=== PATIENT | female | born 1985 | race Caucasian/White ===

== ENCOUNTER → 2018-11-19 09:46 | Outpatient (CLI) | payer OTHER, SELFPAY ==
--- NOTE | 2018-11-19 09:49 | DI.US.S_ITS ---
LIMITED ULTRASOUND OF LEFT BREAST AND AXILLA: 11/19/2018 CLINICAL: Palpable left breast lump x 2 months. Additional tender spot x 1 day. Patient is reportedly nursing. Comparison is made to exam dated: 11/19/2018 mammogram - [facility]. Real-time and Doppler ultrasound of the left breast 1-2 o'clock, and axilla regions were performed. Johnson scale images of the real-time examination were reviewed. There is a 1.3 x 1.6 x 1.1 cm irregular indistinct mass in the left breast at 1:00 position 18 cm from the nipple at the site of the patient's reported palpable concern. This mass demonstrates heterogeneous echogenicity, as well as internal and peripheral vascularity on Doppler ultrasound. There is a 0.6 cm oval circumscribed hypoechoic mass adjacent this mass and may represent an adjacent lymph node. Targeted ultrasound of the left axilla demonstrates a 1.8 x 0.8 cm lymph node that demonstrates a preserved internal fatty hilum but demonstrates an area of asymmetric cortical thickening up to 5 mm. There is prominent hilar vascularity on Doppler ultrasound. Targeted ultrasound of the left breast at 2:00 position 15 cm from the nipple at the site of the patient's reported focal pain/tenderness demonstrates no underlying mass or abnormality. Dense fibroglandular tissue is identified. IMPRESSION: SUSPICIOUS OF MALIGNANCY 1. 1.6 cm irregular indistinct mass in the left breast at 1:00 position 18 cm from the nipple at the site of the patient's palpable concern. This mass is of intermediate suspicion for malignancy and an ultrasound-guided biopsy is recommended. 2. Abnormal cortical thickening of a left axillary lymph node. An ultrasound-guided biopsy is recommended. 3. No ultrasound evidence of a mass or abnormality in the left breast at the site of the patient's reported focal pain/tenderness to explain the patient's reported pain/tenderness symptoms. Recommend clinical followup for further evaluation and management. These results and recommendations were discussed with the patient at the time of the exam by the [facility] Radiologist Dr. Rudolph Buenrostro in person. This exam was interpreted at Station ID: [id number]. Electronically Signed By: Pravin Davidson M.D. ecl/:11/19/2018 12:16:11 letter sent: Biopsy Required Ultrasound BI-RADS: 4b Suspicious abnormality - intermediate suspicion of malignancy
--- NOTE | 2018-11-19 09:49 | DI.MG.S_ITS ---
BILATERAL DIGITAL DIAGNOSTIC MAMMOGRAM 3D/2D: 11/19/2018 CLINICAL: Baseline exam. Family history of breast cancer. Left breast lump and pain. No prior exams were available for comparison. The tissue of both breasts is extremely dense, which lowers the sensitivity of mammography. There is a triangular marker overlying the skin of the upper outer left breast at middle to posterior depth at the site of the patient's reported palpable abnormality. There is no underlying mammographic abnormality. There is a square marker overlying the skin of the upper outer left breast breast at middle to posterior depth at the site of the patient's reported focal pain/tenderness. There is no underlying mammographic abnormality. IMPRESSION: INCOMPLETE: NEEDS ADDITIONAL IMAGING EVALUATION No mammographic abnormalities to correlate with the site of the patient's reported focal palpable abnormality or the site of the patient's reported focal breast pain/tenderness in the upper outer left breast. Targeted diagnostic ultrasound recommended for further evaluation, which will be performed immediately following this exam. This exam was interpreted at Station ID: [id number]. NOTE: For mammograms, a report in lay terms will be sent to the patient. Approximately 15% of breast malignancies will not be visualized mammographically. In the management of a palpable breast mass, a negative mammogram must not discourage biopsy of a clinically suspicious lesion. Electronically Signed By: Pravin Davidson M.D. ecl/:11/19/2018 12:01:51 copy to: Faith White letter sent: Additional Imaging Needed ACR BI-RADS Category 0: Incomplete [id number]
== END ==
PROVIDERS: PCP Family Medicine; Visit Provider Registered Nurse
DX: R92.8 Other abnormal and inconclusive findings on diagnostic imaging of breast (principal); N63.21 Unspecified lump in the left breast, upper outer quadrant; N64.4 Mastodynia; Z80.3 Family history of malignant neoplasm of breast
CPT/HCPCS: 76642; 77066; G0279

== ENCOUNTER → 2018-12-06 12:51 | Outpatient (CLI) | payer OTHER, SELFPAY ==
--- NOTE | 2018-12-06 | PATH_ITS ---
[facility] Accession Number: [id number] . 01 Material submitted: . LEFT BREAST . 01 Clinical history: . MASS 1:00 18CM FN . 02 Diagnosis: Left Breast Mass, 1 o'clock, 18 cm from Nipple, Needle Core Biopsies: Invasive ductal carcinoma with the following features: 1. Fertile grade: 2 (poor tubule formation, intermediate nuclear grade, intermediate mitotic activity) 2. Greatest linear extent: 0.9 cm. 3. Ductal carcinoma in situ: Focally present, cribriform. 4. Microcalcifications: Not identified. 5. Lymph-vascular invasion: Not identified. 6. Prognostic markers: Will be performed and the results will be reported as an addendum. MRV/12/07/2018 . 02 Comment: As part of routine quality technician, Dr. Junior has reviewewd this case and agrees with the diagnosis of invasive ductal carcinoma. The finding of ductal carcinoma was reported to PANDA Sainz, by Dr. Osman Cross on 12/07/2018 at 1 p.m. . 02 Electronically signed: . Osman Cross MD, PhD, Pathologist NPI- [id number] . 01 Gross description: . Received one formalin-filled container labeled with the patient's name and designated left breast mass 1 o'clock, 18 cm FN. The specimen is received with plastic filter in container, sample loose in container. The specimen consists of multiple light yellow-seymour portions of tissue, which aggregate to 1.5 x 0.5 x 0.2 cm. The specimen is filtered and entirely submitted in one cassette. Collection date 12/06/2018. Collection time per container 2:10. Total fixation time 12 hours up to 24. [place] [id number] / . 02 Pathologist provided ICD-10: C50.412 . 02 CPT . 340622, R35340, [id number] Performed at: 01 [facility] [address] [address], [place], [place] [id number] MD Mehran Baum MD Phone: [phone] Performed at: 02 [facility] [address] [place], [place] [id number] MD Jolanta Junior MD Phone: [phone]
--- NOTE | 2018-12-06 | DI.MG.S_ITS ---
UNILATERAL LEFT DIGITAL DIAGNOSTIC MAMMOGRAM POST-NEEDLE BIOPSY: 12/06/2018 CLINICAL: Left breast mass. Post clip placement. Comparison is made to exams dated: 12/06/2018 ultrasound biopsy and 11/19/2018 mammogram - [facility]. The tissue of left breast is extremely dense, which lowers the sensitivity of mammography. There is a biopsy marker in the left axillary tail, Trumark Vision type, marking the site of US biopsy performed earlier today. IMPRESSION: POST PROCEDURE MAMMOGRAM FOR MARKER PLACEMENT Marker left axillary tail indicates site of US guided biopsy earlier today. This exam was interpreted at Station ID: [id number]. NOTE: For mammograms, a report in lay terms will be sent to the patient. Approximately 15% of breast malignancies will not be visualized mammographically. In the management of a palpable breast mass, a negative mammogram must not discourage biopsy of a clinically suspicious lesion. Electronically Signed By: Horace Brown M.D. [facility]/:12/06/2018 17:16:53 ACR BI-RADS Category Post-procedure mammogram for marker placement
--- NOTE | 2018-12-06 12:57 | DI.US.S_ITS ---
ULTRASOUND GUIDED BIOPSY LEFT BREAST USING VACUUM DEVICE WITH MARKING DEVICE INSERTED AND POST DIGITAL MAMMOGRAPHIC AND ULTRASOUND IMAGIN12/06/2018 CLINICAL: Left breast mass. PATIENT CONSENT: Risks (minor bleeding, infection, vasovagal reaction and repeat procedure), benefits and alternatives were explained to the patient and written informed consent was obtained. Correlation is made to exams dated: 11/19/2018 ultrasound and 11/19/2018 mammogram [facility]. An ultrasound guided biopsy using real-time ultrasound was performed for the concerning palpable circumscribed oval mass located in the left breast at 1 o'clock posterior depth. This was described on the previous ultrasound report. The skin was prepped in the usual manner. Local anesthetic was administered to the access site. A skin shreyas was made in the breast. The abnormality was approached from the lateral aspect. A 13 gauge biopsy needle was placed adjacent to the abnormality under ultrasound guidance. Once the needle was documented to be in the correct location, four specimens were obtained using the Mammotome biopsy system. The patient received additional local anesthetic during the procedure. A Trumark Vision clip was inserted into the biopsy cavity. A skin adhesive and a skin closure strip were applied to the access site. Post procedure mammographic imaging demonstrates the location device at the targeted area and partial removal of the abnormality. The specimens were sent to the laboratory for pathological analysis. IMPRESSION: ULTRASOUND GUIDED BIOPSY MALIGNANT Ultrasound guided biopsy of the mass in the left breast at 1 o'clock posterior depth was successful. Pathology results demonstrate invasive ductal carcinoma. Please note, the left axillary lymph node reportedly had a normal appearance on the day of the biopsy 12/07/18 and was therefore not biopsied at that time. If clinically indicated, the left axillary lymph node is amenable to ultrasound-guided biopsy. This exam was interpreted at Station ID: [id number]. Horace doyle,lk/:12/13/2018 10:28:10
== END ==
PROVIDERS: PCP Family Medicine; Visit Provider Registered Nurse
DX: C50.412 Malignant neoplasm of upper-outer quadrant of left female breast (principal); Z17.0 Estrogen receptor positive status [ER+]
CPT/HCPCS: 19083; 77065

== ENCOUNTER → 2018-12-16 09:30 | Oncology outpatient (ONC) | payer OTHER, SELFPAY ==
[2018-12-15 08:41] VITALS: BP 107/60; PULSE 97; RESP 18; TEMP 36.2; O2SAT 99
--- NOTE | 2018-12-15 09:24 | ONC.CONS ---
History of Present Illness - Data of Consult Consult date: 12/15/18 Primary Care Provider: Faith Abdul, DO - Consult Narrative Narrative: Diagnosis: Left-sided breast cancer, clinically T1c N0, ER positive/KY positive. HER2 was 2+ by IHC. Fish is pending. History of present illness: Roslyn Latif is a 33 year old female who is referred for further evaluation of a newly diagnosed breast cancer. She noticed a lump in her upper outer left breast around gi. She notes that she has had lots of lumps in that area but this 1 felt different. It persisted. Because of that, she sought medical attention. She had a mammogram performed that did not disclose the abnormality. An ultrasound done on November 19 showed a 1.3 x 1.6 x 1.1 cm suspicious lesion in the left breast. There was an adjacent 6 mm hypodensity that may have been an adjacent lymph node. There was also 1.8 x 0.8 cm lymph node noted in the left axilla. She had a ultrasound-guided biopsy performed on December 06. At the time of that procedure, the axillary node was not identified. The biopsy of the breast mass showed a grade 2 infiltrating ductal carcinoma. ER and KY were positive. HER2 was 2+ by IHC and FISH is pending. The patient has an appointment with the surgeon on the 27 of December. Today, she is feeling well. She denies any new aches or pains. She has not had any fevers chills or night sweats. Appetite and energy level have been stable. No shortness of breath cough for chest pain. No GI complaints. She did give almost exactly a year ago and has been nursing her baby. Her past medical history is otherwise unremarkable. She has 2 children. She did have some palpitations in the past and had evaluation with an EKG and ambulatory monitoring with no abnormality found. She has not had any prior surgeries. Include a vitamin and ibuprofen as needed. She denies any drug allergies. Family history: Her mother was diagnosed with breast cancer at age 45. The patient tells me that her mother had genetic testing done and did not have a mutation in BRCA there is no other family history of malignancy. Social history: She does not smoke. She has very rare alcohol use. She works teaching theater classes part-time. She has 2 small children. CC: Nash Vargas MD Home Medications and Allergies Home Medications Medication Instructions Recorded Confirmed Type ibuprofen 600 mg PO Q6HP PRN #30 tab 12/17/17 10/29/18 Rx sumatriptan 25 mg tablet 25 mg PO ONCE #7 tab MDD 150 mg 04/01/18 10/29/18 Rx PNV cmb#95-ferrous fumarate-FA 12/15/18 History [] Allergies Allergy/AdvReac Type Severity Reaction Status Date / Time No Known Drug Allergies Allergy Unverified 10/29/18 14:54 Medical History - Medical, Surgical, Family History Surgical History: Surgical History (Last Reviewed 12/08/18 @ 16:45 by Faith Abdul DO) History of tonsillectomy Onset Date: 2002 Family History: Family History (Last Reviewed 12/08/18 @ 16:45 by Faith Abdul DO) Grandfather Aneurysm Grandmother Stroke Mother Cancer Grandmother Cancer - Social History Smoking Status: Never smoker Review of Systems Constitutional: able to conduct usual activities, normal activity level Cardiovascular: palpitations Respiratory: no shortness of breath Gastrointestinal: indigestion Integumentary (breast): lumps Exam - Constitutional positive no acute distress, positive average body habitus - Routine HEENT Exam Head: Present: normocephalic, atraumatic Eye: Present: EOMI, PERRL. Absent: conjunctival icterus, scleral injection ENT: Present: mucous membranes moist, oropharynx clear, dentition normal - Routine Neck Exam Present: supple. Absent: lymphadenopathy, thyromegaly - Routine Chest/Breast/Axilla Exam Breast: Present: mass Axillae: Absent: lymphadenopathy Comments: The left breast has a small skin incision the upper breast. There is no surrounding ecchymoses. I do not feel any axillary adenopathy. - Routine Respiratory Exam Present: Clear to auscultation bilaterally. Absent: rales, wheezes - Routine Cardiovascular Exam Present: RRR, S1, S2. Absent: murmur - Routine Abdominal Exam Present: soft, normoactive bowel sounds. Absent: tenderness, organomegaly - Routine Extremities Exam Absent: cyanosis, clubbing, edema - Routine Back/Spine Exam Back/Spine: Absent: paraspinal tenderness, vertebral tenderness - Routine Skin Exam Present: intact. Absent: rash - Routine Neurological Exam Present: alert, oriented X3 - Routine Psychiatric Exam Present: normal affect, normal thought process Results - Imaging Additional studies: Procedures Repair of other current obstetric laceration (01/10/15) Assessment and Plan (1) Invasive ductal carcinoma of breast Current visit: No Status: Acute A 33-year-old woman with a newly diagnosed moderately differentiated ER/KY positive breast cancer. Clinically this appears to be stage I. Her 2 fish is still pending. She has an appointment pending with surgery on the . I explained that the mainstay of treatment for early stage breast cancer was surgery. This could be a mastectomy or it could be lumpectomy followed by radiation. Long-term outcomes were identical between these 2 approaches and most women favor lumpectomy. I described radiation given daily Thursday through Thursday for several weeks. Side effects including skin reaction and fatigue were briefly reviewed. We did talk about the role of chemotherapy and hormone therapy in reducing the risk for systemic recurrence. If her cancer does over express HER2, she would benefit from Herceptin based chemotherapy. If the FISH is negative, then an Oncotype may be helpful in risk stratify her cancer. Patients with a lower intermediate recurrence score have minimal or no benefit from chemotherapy but more benefit from hormone therapy. Conversely, patients with high recurrence score do benefit from chemotherapy. The last phase of her treatment would be hormone therapy. I described tamoxifen taken orally daily for 5 years. We also talked about the use of ovarian suppression plus an aromatase inhibitor. This combination therapy shown improvement in relapse free survival but minimal change in overall survival. Higher risk woman seem to drive more benefit from the combination. Given that her tumor appears to be stage I, I would anticipate that tamoxifen would be sufficient for her. We did talk about inherited cancer risk specifically BRCA 1 and 2. Her mother did have breast cancer at a young age. However, her mother was tested for mutations and found not to be a carrier. We could perhaps consider testing with my risk panel which would include additional cancer risk genes. She also had questions regarding the breast feeding. I explained that if she require chemotherapy, breast feeding would be contraindicated in that setting. It also would not be recommended while on hormone therapy. She does have a Mirena IUD. The package insert suggest that it should not be used in patients who have breast cancer. She will contact her hyperbaric technologist to have it removed. She will return to clinic here about 2 weeks or so after her surgery. Hopefully at that time, we will be able to arrive at a more definitive treatment plan.
--- NOTE | 2018-12-15 13:20 | ONC.NAV ---
Description: New Breast Patient Intro Activity: Met with pt to introduce myself as the Pt Edward/SKIVER OPERATOR, offer services card, and establish initial rapport. Pt indicated a (8) on her distress screening, expressing anger, worry, and the need for support groups/counseling/peer to peer support, and help with coordination surrounding her treatment scheduling. Pt presents as calm, yet worried about how long she has to wait to get her lumpectomy surgery (Dec.27). SKIVER OPERATOR discussed resources and support available, including the Women's Cancer Support Group, written materials, the [facility] [employer] [facility], and ongoing navigation support. Provided a flyer for the group, which she will plan to attend tomorrow. No further immediate needs identified at this time. Plan: Will f/u with pt tomorrow to provide additional info, continue initial assessment, and provide additional supportive materials for her to bring home for her spouse/family.
[2018-12-16 10:00] LABS: Add Manual Diff / Slide Review NO; Basophils Absolute Auto 0 /uL (0-100); Basophils Percent Auto 0.6 % (0-2); Eosinophils Absolute Auto 200 /uL (0-450); Eosinophils Percent Auto 3.2 % (2-4); Hematocrit 40.5 % (36-46); Hemoglobin 13.6 g/dL (12.0-16.0); Lymphocytes Absolute Auto 1400 /uL (1100-4500); Lymphocytes Percent Auto 25.8 % (25-40); Mean Corpuscular HGB Conc 33.7 % (30-36); Mean Corpuscular Hemoglobin 30.1 PG (26-34); Mean Corpuscular Volume 89.3 fL (80-100); Monocytes Absolute Auto 400 /uL (0-900); Monocytes Percent Auto 6.8 % (3-14); Neutrophils Absolute Auto 3600 /uL (1500-7000); Neutrophils Percent Auto 63.6 % (50-75); Platelet Count 257 X10^3/uL (150-400); Red Blood Cell Count 4.54 X10^6/uL (4.0-5.2); Red Cell Distribution Width 13.4 % (11.6-14.8); White Blood Cell Count 5.6 X10^3/uL (4.5-11.0)
[2018-12-16 10:07] LABS: Alanine Aminotransferase 23 IU/L (9-52); Albumin 4.7 g/dL (3.5-5.0); Albumin Globulin Ratio 1.6 (1.0-2.8); Alkaline Phosphatase 69 U/L (38-126); Aspartate Aminotransferase 26 IU/L (14-36); BUN Creatinine Ratio 33.3 (6-22); Bilirubin Total 0.7 mg/dL (0.2-1.3); Blood Urea Nitrogen 20 mg/dL (7-17); Calcium 9.5 mg/dL (8.4-10.2); Carbon Dioxide 27 mmol/L (22-32); Chloride 102 mmol/L (98-107); Estimated Glomerular Filt Rate > 60.0 mL/min (>60); Glucose 60 mg/dL (70-100); HEMOLYSIS 16 (0-50); Potassium 3.7 mmol/L (3.4-5.1); Sodium 140 mmol/L (137-145); Total Protein 7.7 g/dL (6.3-8.2)
== END ==
PROVIDERS: PCP Family Medicine
DX: C50.412 Malignant neoplasm of upper-outer quadrant of left female breast (principal); Z17.0 Estrogen receptor positive status [ER+]
CPT/HCPCS: 80053; 85025; 99205; 99215

== ENCOUNTER → 2019-01-06 14:29 | Outpatient (CLI) | payer OTHER, SELFPAY ==
--- NOTE | 2019-01-06 14:32 | DI.MRI.S_ITS ---
BREAST MRI OF BOTH BREASTS: 01/06/2019 CLINICAL: Left Breast Cancer. PROCEDURE: MR BREAST BI WO/W CON INDICATIONS: Left Breast Cancer. Per chart review, the patient presented with a palpable painful mass in the upper outer left breast. A diagnostic mammogram and targeted ultrasound of the left breast and axilla was performed on 11/19/2018 and demonstrated a 1.6 cm irregular mass in the left breast at 1:00 position 18 cm from the nipple, as well as a left axillary lymph node demonstrating abnormal cortical thickening. Ultrasound-guided biopsy of the left breast mass was performed on 12/06/2018 and was positive for invasive ductal carcinoma. Per chart review, the previously suspicious left axillary lymph node had a reportedly normal appearance on the day of the left breast mass biopsy, and biopsy of the left axillary lymph node was deferred at that time. TECHNIQUE: The patient was placed prone in a dedicated breast imaging coil. Precontrast axial STIR and 3D FLASH without fat saturation sequences were obtained. Both before and after bolus injection of contrast, sequential 1-minute axial 3D FLASH with fat saturation sequences for 3 time points, with subtraction images and maximum intensity projections (MIP's) generated. Delayed sagittal FLASH images with fat saturation were also obtained. 20ccs of Prohance intravenous contrast was utilized for this exam. Computer-aided detection, including computer algorithm analysis of MRI image data for lesion detection and characterization, pharmacokinetic analysis, with further physician review for interpretation, was performed. COMPARISON: [facility], , MM DIAGNOSTIC MAMMO UNILAT LT2D, 12/06/2018, 14:31. [facility], , US BX BREAST PERC W VAC DEVICE, 12/06/2018, 13:17. [facility], US BREAST LT LIMITED, 11/19/2018, 11:09. Merged with [facility], MM DIAGNOSTIC MAMMO BI, 11/19/2018, 10:45. FINDINGS: Image quality: Excellent. There is moderate background parenchymal enhancement. The tissue of both breasts is extremely dense, Right breast: No suspicious masses or non-mass enhancement. Left breast: There is a 2.1 cm anteroposterior by 1.4 cm transverse by 1.6 cm craniocaudal oval shaped mass with irregular margin in the upper outer left breast at posterior depth with susceptibility artifact at the posterior aspect of the mass suggestive of a biopsy clip. This correlates with the known biopsy proven carcinoma. This mass demonstrates predominantly persistent contrast enhancement kinetics. The mass directly abuts and exerts mass effect upon the left pectoralis muscles, and there is no preserved fat plane between the mass and the pectoralis musculature. However, there is no direct contrast enhancement of the left pectoralis muscles. No convincing skin or nipple involvement. Miscellaneous: No internal mammary lymphadenopathy. There is an asymmetrically increased number of nonenlarged level I lymph nodes in the left axilla. There is a right level I axillary lymph node that measures at the upper limits of normal in size. IMPRESSION: KNOWN BIOPSY PROVEN MALIGNANCY Left breast: 1. 2.1 x 1.6 x 1.4 cm mass in the upper outer left breast at posterior depth correlating with the known biopsy proven carcinoma. The mass directly abuts the left pectoralis muscles with no preserved fat plane between the mass and the left pectoralis musculature on MRI, but there is no direct contrast enhancement within the left pectoralis musculature to definitively demonstrate left pectoralis muscle invasion. 2. Indeterminate left axillary lymph nodes. While there is an asymmetrically increased number of left level I axillary lymph nodes, they do not measure enlarged by size criteria. Given that abnormal cortical thickening was seen on initial left axillary ultrasound of 11/19/2018 but did not appear abnormal on the day of the biopsy on 12/06/2018, it is possible that these lymph nodes are changing in size with time and are possibly reactive; however, underlying malignancy is not excluded. Recommend clinical follow-up with axillary ultrasound if clinically indicated. A left axillary lymph node biopsy could be performed if an abnormal node is identified or if clinically indicated. Right breast: 1. No suspicious masses or non-mass enhancement within the right breast. 2. Right axillary level 1 lymph node measuring at the upper limits of normal in size. This is possibly reactive. Recommend clinical followup with axillary ultrasound if clinically indicated. BIRADS: Left breast: BI-RADS 6. Biopsy proven carcinoma. Recommend surgical excision when clinically appropriate. Right breast: BI-RADS 1. Negative for malignancy. Recommend return to screening mammography schedule with MRI surveillance given known history of left breast cancer. COMMENT: The imaging literature indicates that a negative contrast breast MRI examination has a high sensitivity and a moderate specificity for detecting and excluding invasive carcinomas to a detection threshold of 3-5 mm; nonetheless, appropriate clinical and mammographic follow-up are recommended. MRI is not sensitive for detecting DCIS (ductal carcinoma in situ) and may not detect large invasive neoplasms that show only minimal enhancement such as mucinous carcinoma. If there are suspicious calcifications or clinically worrisome palpable masses, then biopsy should still be considered. Invasive neoplasms can be hidden by co-existent and benign enhancement caused by mastitis, hormone therapy effects, radiation therapy, , and recent biopsy or surgery. False positive examinations can occur in a number of circumstances, including breasts that have recently been subject to invasive procedures and those that contain atypical ductal hyperplasia, hormonally stimulated glandular tissue, fat necrosis, or radial scars. This exam was interpreted at Station ID: [id number]. Electronically Signed By: Pravin Davidson M.D. ecl/:01/07/2019 08:01:30 ACR BI-RADS Category 6: Known biopsy proven malignancy [id number]
== END ==
PROVIDERS: PCP Family Medicine; Visit Provider Surgery
DX: C50.412 Malignant neoplasm of upper-outer quadrant of left female breast (principal)
CPT/HCPCS: 77049; A9579

== ENCOUNTER → 2019-08-05 15:55 | Outpatient (CLI) | payer OTHER, SELFPAY ==
--- NOTE | 2019-08-05 15:56 | DI.US.S_ITS ---
PROCEDURE: US PELVIC COMPLETE INDICATIONS: PELVIC PAIN TECHNIQUE: Real-time scanning was performed of the pelvic organs, with image documentation. Additional endovaginal scanning was necessary due to incomplete visualization of the adnexal and endometrial structures by transabdominal scanning. COMPARISON: None. FINDINGS: Transabdominal scanning: Limited scanning through the kidneys shows no hydronephrosis. No pathologic free abdominal or pelvic fluid. Physiologic free fluid in the pelvis. Endovaginal scanning: Uterus: Uterus is normal in size at 9.4 x 4.5 x 6.3 cm. The endometrium measures 11 mm in combined thickness. Intrauterine device is present. Ovaries: Right ovary is within normal limits measuring 49 mm. There is a 33 mm thick walled hypoechoic focus within the left ovary which demonstrates peripheral flow. Possible solid component is seen. IMPRESSION: 1. Hemorrhagic cyst versus mass within the left ovary. Followup ultrasound in 6 weeks is recommended to ensure resolution, and to exclude underlying malignancy. 2. Intrauterine device. Dictated by: Ashly Craig M.D. on 08/05/2019 at 19:12 Approved by: Ashly Craig M.D. on 08/05/2019 at 19:13
== END ==
PROVIDERS: PCP Family Medicine; Visit Provider Family Medicine
DX: R10.2 Pelvic and perineal pain (principal); Z97.5 Presence of (intrauterine) contraceptive device
CPT/HCPCS: 76830; 76856

== ENCOUNTER → 2019-08-19 16:26 | Outpatient (CLI) | payer OTHER, SELFPAY ==
[2019-08-23 18:26] LABS: Mumps Virus IgG Antibody < 9.00 AU/mL (< 9.00)
== END ==
PROVIDERS: PCP Family Medicine; Visit Provider Family Medicine
DX: Z01.84 Encounter for antibody response examination (principal)
CPT/HCPCS: 36415; 86735; 86765

== ENCOUNTER → 2019-09-20 08:41 | Outpatient (CLI) | payer OTHER, SELFPAY ==
--- NOTE | 2019-09-20 08:46 | DI.US.S_ITS ---
PROCEDURE: US PELVIC COMPLETE INDICATIONS: FOLLOW UP OVARIAN CYST SEEN ON ULTRASOUND 08/05 TECHNIQUE: Real-time scanning was performed of the pelvic organs, with image documentation. Additional endovaginal scanning was necessary due to incomplete visualization of the adnexal and endometrial structures by transabdominal scanning. COMPARISON: [facility], , US PELVIC COMPLETE, 08/05/2019, 16:18. FINDINGS: Transabdominal scanning: Limited scanning through the kidneys shows no hydronephrosis. No pathologic free abdominal or pelvic fluid. Endovaginal scanning: Uterus: Uterus is normal in size at 8.3 x 3.8 x 5.3 cm. An IUD is seen at its expected location. The endometrial stripe is obscured. Ovaries: The right ovary measures 4.3 x 2.6 x 1.9 cm. The left ovary measures 3.8 x 1.8 x 2.6 cm. The ovaries have a normal sonographic appearance. No adnexal masses are seen. IMPRESSION: Normal study, with an IUD seen at its expected location. The previously seen left ovarian hemorrhagic cyst is no longer seen. Dictated by: Pawel Bhakta M.D. on 09/20/2019 at 9:38 Approved by: Pawel Bhakta M.D. on 09/20/2019 at 9:40
== END ==
PROVIDERS: PCP Family Medicine; Visit Provider Family Medicine
DX: N83.202 Unspecified ovarian cyst, left side (principal); R10.2 Pelvic and perineal pain; Z97.5 Presence of (intrauterine) contraceptive device
CPT/HCPCS: 76830; 76856

== ENCOUNTER → 2020-01-06 16:08 | Outpatient (CLI) | payer OTHER, SELFPAY ==
--- NOTE | 2020-01-06 16:17 | DI.RAD.S_ITS ---
PROCEDURE: XR KNEE RT 3V INDICATIONS: Right knee pain TECHNIQUE: 3 views of the knee were acquired. COMPARISON: None. FINDINGS: Bones: No fractures or dislocations. No suspicious bony lesions. Soft tissues: No joint effusion. No suspicious soft tissue calcifications. IMPRESSION: Unremarkable radiographic examination of right knee. Dictated by: Omid Peña M.D. on 01/06/2020 at 16:50 Approved by: Omid Peña M.D. on 01/06/2020 at 16:50
--- NOTE | 2020-01-06 16:17 | DI.RAD.S_ITS ---
PROCEDURE: XR KNEE LT 3V INDICATIONS: Left knee pain TECHNIQUE: 3 views of the knee were acquired. COMPARISON: None. FINDINGS: Bones: No fractures or dislocations. No suspicious bony lesions. Soft tissues: No joint effusion. No suspicious soft tissue calcifications. IMPRESSION: No acute fracture or dislocation. No significant joint effusion. Dictated by: Omid Peña M.D. on 01/06/2020 at 16:48 Approved by: Omid Peña M.D. on 01/06/2020 at 16:50
== END ==
PROVIDERS: PCP Family Medicine; Referring Provider Registered Nurse; Visit Provider Registered Nurse
DX: M25.562 Pain in left knee (principal); M25.561 Pain in right knee
CPT/HCPCS: 73562

== ENCOUNTER → 2020-09-13 13:35 | Outpatient (CLI) | payer OTHER, SELFPAY ==
--- NOTE | 2020-10-12 15:48 | PM.CARDMON.1 ---
Applications Administrator Report Referral & Results Date Patient Seen: 09/13/20 Requesting provider: Faith Abdul Indication: Dizziness Duration of monitoring (days): 14 Diary information: There were 34 patient triggered events and 6 patient diary entries Patient triggered events were associated with (within 45 seconds) sinus rhythm and PACs Patient diary events were associated with the same sinus rhythm and PACs Data: Minimum heart rate identified was 43 beats per minute at 02:10 on 09/20/2020 Maximum heart rate was 167 beats per minute at 10:10 on 09/23/2020 Less than 1% of identified beats rather ventricular supraventricular ectopic in origin No other significant dysrhythmias identified Impression: 14 day spindle tester showing occasional PACs and may may not be symptomatic based on patient triggered events. No other serious dysrhythmias identified Clinical correlation suggested
== END ==
PROVIDERS: PCP Family Medicine; Referring Provider Family Medicine; Visit Provider Family Medicine
DX: R42 Dizziness and giddiness (principal); R06.02 Shortness of breath
CPT/HCPCS: 0296T; 0298T

== ENCOUNTER → 2020-12-06 15:39 | Outpatient (CLI) | payer OTHER, SELFPAY ==
--- NOTE | 2020-12-06 15:42 | DI.US.S_ITS ---
PROCEDURE: US ABDOMEN LIMITED INDICATIONS: PALPABLE SUPERFICIAL CORD LEFT ABDOMEN TECHNIQUE: Real-time focused scanning was performed of the abdomen, with image documentation. COMPARISON: None. FINDINGS: No left upper quadrant anterior abdominal wall abnormality, fluid collection or mass seen. IMPRESSION: No left upper quadrant abnormality seen in the area of interest. If pain persists, consider CT. Dictated by: Ori GARDINER Interpreted: Omid Peña MD on 12/06/2020 at 16:14 Approved by: Omid Peña M.D. on 12/06/2020 at 17:01
== END ==
PROVIDERS: PCP Family Medicine; Referring Provider Family Medicine; Visit Provider Family Medicine
DX: I82.890 Acute embolism and thrombosis of other specified veins (principal)
CPT/HCPCS: 76705

== ENCOUNTER → 2021-05-02 14:23 | Outpatient (CLI) | payer OTHER, SELFPAY ==
--- NOTE | 2021-05-02 14:40 | DI.RAD.S_ITS ---
PROCEDURE: XR CHEST 2V INDICATIONS: shortness of breath, h/o breast cancer TECHNIQUE: 2 views of the chest were acquired. COMPARISON: [facility], CT, CT YEPEZ, 04/18/2019, 13:44. FINDINGS: Surgical changes and devices: Left axillary clips. Lungs and pleura: Lungs are clear. No pleural effusions or pneumothorax. Mediastinum: Mediastinal contours are normal. Heart size is normal. Bones and chest wall: No suspicious bony abnormalities. Soft tissues appear unremarkable. IMPRESSION: No acute cardiopulmonary abnormality. Dictated by: Romeo Finley M.D. on 05/02/2021 at 15:02 Approved by: Romeo Finley M.D. on 05/02/2021 at 15:08
[2021-05-02 15:24] LABS: Add Manual Diff / Slide Review NO; Basophils Absolute Auto 0 /uL (0-100); Basophils Percent Auto 0.6 % (0-2); Eosinophils Absolute Auto 100 /uL (0-450); Eosinophils Percent Auto 1.4 % (2-4); Hematocrit 37.9 % (36-46); Hemoglobin 12.9 g/dL (12.0-16.0); Lymphocytes Absolute Auto 1900 /uL (1100-4500); Lymphocytes Percent Auto 33.1 % (25-40); Mean Corpuscular Volume 88.3 fL (80-100); Monocytes Absolute Auto 400 /uL (0-900); Neutrophils Absolute Auto 3300 /uL (1500-7000); Neutrophils Percent Auto 57.9 % (50-75); Platelet Count 281 X10^3/uL (150-400); Red Blood Cell Count 4.29 X10^6/uL (4.0-5.2); White Blood Cell Count 5.7 X10^3/uL (4.5-11.0)
[2021-05-02 15:38] LABS: Alanine Aminotransferase 19 IU/L (<35); Albumin 4.6 g/dL (3.5-5.0); Albumin Globulin Ratio 1.6 (1.0-2.8); Alkaline Phosphatase 79 U/L (38-126); Aspartate Aminotransferase 26 IU/L (14-36); Bilirubin Total 0.3 mg/dL (0.2-1.3); Blood Urea Nitrogen 14 mg/dL (7-17); Calcium 9.8 mg/dL (8.4-10.2); Carbon Dioxide 29 mmol/L (22-32); Chloride 104 mmol/L (98-107); Estimated Glomerular Filt Rate > 60.0 mL/min (>60); Globulin 2.8 g/dL (1.7-4.1); Glucose 126 mg/dL (70-100); HEMOLYSIS < 15 (0-50); Potassium 3.7 mmol/L (3.4-5.1); Sodium 140 mmol/L (137-145); Total Protein 7.4 g/dL (6.3-8.2)
[2021-05-02 16:24] LABS: Vitamin D 25 Hydroxy (D3) 45.3 ng/mL (30.0-100.0)
== END ==
PROVIDERS: PCP Family Medicine; Referring Provider Family Medicine; Visit Provider Family Medicine
DX: R06.02 Shortness of breath (principal); E55.9 Vitamin D deficiency, unspecified
CPT/HCPCS: 36415; 71046; 80053; 82306; 85025

== ENCOUNTER 2021-05-04 14:43 | Emergency (ER) | payer OTHER, SELFPAY ==
[2021-05-04 14:46] VITALS: BP 102/63; PULSE 96; RESP 24; TEMP 37.3; O2SAT 100
--- NOTE | 2021-05-04 14:53 | DI.RAD.S_ITS ---
PROCEDURE: XR CHEST 2V INDICATIONS: Shortness of breath TECHNIQUE: 2 views of the chest were acquired. COMPARISON: [facility], , XR CHEST 2V, 05/02/2021, 14:36. FINDINGS: Surgical changes and devices: None. Lungs and pleura: Lungs are clear. No pleural effusions or pneumothorax. Mediastinum: Mediastinal contours are normal. Heart size is normal. Bones and chest wall: No suspicious bony abnormalities. Soft tissues appear unremarkable. IMPRESSION: No evidence acute pulmonary process. Dictated by: Morris Curran M.D. on 05/04/2021 at 14:16 Approved by: Morris Curran M.D. on 05/04/2021 at 14:17
[2021-05-04 15:28] LABS: COVID19 -Nasal RAPID Negative (Negative)
--- NOTE | 2021-05-04 15:38 | ED.GENADULT ---
HPI - General Adult General Chief complaint: Shortness of Breath/Dyspnea Stated complaint: SOB Time Seen by Provider: 05/04/21 14:59 Source: patient Mode of arrival: Ambulatory Limitations: no limitations History of Present Illness HPI narrative: patient is a 36-year-old female who has been having off and on episodes of shortness of breath for many years now that seems to have been worsening over the past couple days/ weeks. She was actually seen by her primary doctor a couple days ago for these symptoms and had a chest x-ray. There was some discussion about potentially this being a a anxiety issue over the patient states she does not feel anxious when the symptoms are occurring. Initially was only occurring when she was driving but now seems to be occurring with other circumstances while. She does not know of 1 particular circumstance that causes the symptoms. Last only for minutes and then resolves. No chest pain does have a history of breast cancer and is under the care of [facility] for this. There is also discussion in a primary doctor's note about obtaining a CT scan a symptoms are not improving. She comes to the emergency department today because she had an episode today that she thought was somewhat worse than normal. The time my evaluation she was asymptomatic. Related Data Home Medications Medication Instructions Recorded Confirmed PNV cmb#[id number]-[id number] fumarate-FA 12/15/18 06/05/20 [] Previous Rx's Medication Instructions Recorded ibuprofen 600 mg PO Q6HP PRN #30 tab 12/17/17 sumatriptan succinate 25 mg tablet 25 mg PO ONCE #7 tab MDD 150 mg 04/01/18 ParaGuard IUD #1 ea 03/22/19 hydrocortisone 2.5 % topical cream See Rx Instructions .ROUTE 09/13/20 with perineal applicator .COMPLEX #28 gram hydroxyzine HCl 25 mg tablet 25 mg PO BEDTIME PRN #30 tab 05/02/21 Allergies Allergy/AdvReac Type Severity Reaction Status Date / Time No Known Drug Allergies Allergy Verified 05/04/21 14:46 Review of Systems Constitutional Constitutional: Denies fever(s) and Denies headache(s) ENT Ears, Nose, Mouth, and Throat: Denies headache(s) Cardiovascular Cardiovascular: Denies chest pain and Reports dyspnea Respiratory Respiratory: Denies cough and Reports dyspnea Gastrointestinal Gastrointestinal: Denies abdominal pain, Denies nausea and Denies vomiting Genitourinary Genitourinary: Reports system reviewed and no additional complaints, except as documented Musculoskeletal Musculoskeletal: Reports system reviewed and no additional complaints, except as documented Integumentary/Breasts Skin/Breast: Reports system reviewed and no additional complaints, except as documented Neurologic Neurologic: Denies headache(s) Hematologic/Lymphatic On Anticoagulants: No Allergic/Immunologic Allergic/Immunologic: Reports system reviewed and no additional complaints, except as documented Patient History Medical History Breast cancer, left Surgical History History of lumpectomy of left breast (~2018) History of tonsillectomy (2002) Family History Grandfather Aneurysm Grandmother Stroke Mother Cancer Grandmother Cancer Social History marital status: number of children: 2 household members: spouse and children lives independently: Yes pets and animals: Yes education level: college occupational status: other Smoking Status: Never smoker alcohol intake: current substance use type: does not use Smoking Status: Never smoker alcohol intake frequency: holidays/special occasions only Substance Use Type: does not use Exam Initial Vital Signs Initial Vital Signs: Vital Signs Temperature 99.2 F 05/04/21 14:46 Pulse Rate 96 H 05/04/21 14:46 Respiratory Rate 24 05/04/21 14:46 Blood Pressure 102/63 05/04/21 14:46 Pulse Oximetry 100 05/04/21 14:46 Const General: cooperative and comfortable Limitations: mental status not altered [facility] Head: normal to inspection and normocephalic Resp Effort & Inspection: normal respiratory effort Auscultation: clear to auscultation bilaterally Cardio Rate: regular rate Rhythm: regular rhythm GI Inspection: non-distended Palpation: soft Skin Lesions: no lesions Rashes: no rashes Extrem General: normal to inspection and capillary refill normal Psych Appearance: grossly normal and well kempt Course Orders Ordered: ED Orders 05/04/21 14:53 XR chest 2V Stat COVID19 -Nasal swab/Pre-Proc Stat 05/04/21 14:59 EKG-12 Lead Stat 05/04/21 15:38 CT angio chest PE protocol Stat Discontinued Medications Sodium Chloride (Normal Saline 0.9%) 1,000 mls @ 1,000 mls/hr IV BOLUS ONE Stop: 05/04/21 16:36 Last Admin: 05/04/21 16:51 Dose: Not Given Documented by: YONATAN Vital Signs Vital signs: Vital Signs - 8 hr 05/04/21 14:46 05/04/21 16:52 Temperature 99.2 F Pulse Rate 96 H 64 Respiratory Rate 24 18 Blood Pressure 102/63 95/57 L Pulse Oximetry 100 98 Medical Decision Making Lab Data Lab results reviewed: Yes I reviewed the patient's lab results. Labs: Lab Results 05/04/21 Range/Units 14:53 SARS-CoV-2 (PCR) Negative (Negative) Point of Care Testing Test Results Negative Urine Dip Bedside Urine Glucose Negative Bedside Urine Bilirubin - Negative Bedside Urine Ketone - Negative Urine Specific [place] 1.010 Bedside Urine Occult Blood - Negative Bedside Urine pH 7 Bedside Urine Protein - Negative Bedside Urine Urobilinogen - Negative Bedside Urine Nitrite - Negative Bedside Urine Leukocytes - Negative Esterase Point of care testing: Point of Care Testing Test Results Negative Urine Dip Bedside Urine Glucose Negative Bedside Urine Bilirubin - Negative Bedside Urine Ketone - Negative Urine Specific [place] 1.010 Bedside Urine Occult Blood - Negative Bedside Urine pH 7 Bedside Urine Protein - Negative Bedside Urine Urobilinogen - Negative Bedside Urine Nitrite - Negative Bedside Urine Leukocytes - Negative Esterase Imaging Data Chest x-ray: Radiologist's Impression: [address] [id number] ReportSigned Patient: Roslyn Latif [facility]#: [id number]: 1985Acct:[id number]/Sex: 36 / FDate of Service: 05/04/21Loc: EDAccession Number: [id number] Procedure: XR chest 2V Ordering Provider: Estrella Carreon D.O. PROCEDURE: XR CHEST 2V INDICATIONS: Shortness of breath TECHNIQUE: 2 views of the chest were acquired. COMPARISON: [facility] , XR CHEST 2V, 05/02/2021, 14:36. FINDINGS: Surgical changes and devices: None. Lungs and pleura: Lungs are clear. No pleural effusions or pneumothorax. Mediastinum: Mediastinal contours are normal. Heart size is normal. Bones and chest wall: No suspicious bony abnormalities. Soft tissues appear unremarkable. IMPRESSION: No evidence acute pulmonary process. Dictated by: Morris Curran M.D. on 05/04/2021 at 14:16 Approved by: Morris Curran M.D. on 05/04/2021 at 14:17 CT scan - chest: Radiologist's Impression: [address] [id number] Scan ReportSigned Patient: Roslyn Latif [facility]#: [id number]: 1985Acct:[id number]/Sex: 36 / FDate of Service: 05/04/21Loc: EDAccession Number: [id number] Procedure: CT angio chest PE protocol Ordering Provider: Denzel Diego D.O. PROCEDURE: CT ANGIO CHEST PE PROTOCOL INDICATIONS: Chest pain, shortness of breath, tachycardia TECHNIQUE: After the administration of intravenous contrast, 2 mm thick sections acquired from the pulmonary apices to the posterior costophrenic angles. 3-dimensional maximum intensity projection (MIP) coronal and sagittal reformats were then acquired through the thorax. For radiation dose reduction, the following was used: automated exposure control, adjustment of mA and/or kV according to patient size. COMPARISON: None. FINDINGS: Image quality: Excellent. Pulmonary arteries: Pulmonary arteries are normal in size, and demonstrate no intraluminal filling defects to suggest central pulmonary embolism. Lungs and pleura: Lungs are clear. No pleural effusions or pneumothorax. Central and peripheral airways are patent. Mediastinum: Heart size is normal, without pericardial effusion. No mediastinal or hilar adenopathy. Thoracic aorta is normal in caliber and enhancement. Esophagus is normal in caliber, without hiatal hernia. Bones and chest wall: No suspicious bony lesions. Ribs and thoracic spine appear intact throughout. Thyroid gland is unremarkable. No axillary or supraclavicular adenopathy. Abdomen: Visualized upper abdominal solid organs appear normal in the early arterial phase of enhancement. IMPRESSION: 1. No evidence of acute pulmonary emboli. 2. No evidence of acute pulmonary process. Dictated by: Morris Curran M.D. on 05/04/2021 at 15:20 Approved by: Morris Curran M.D. on 05/04/2021 at 15:23 ECG Data Attestation: I personally reviewed and interpreted this ECG as follows: Prior ECG tracings: not available for review Interpretation: Sinus rhythm Ventricular rate is 72 Normal axis Normal QRS Normal QTC No ST T wave changes MDM Narrative Medical decision making narrative: EKG is unremarkable, chest x-ray is unremarkable, CT scan today shows no signs of any acute pathology. I do suspect that her symptoms are anxiety related. I did discuss this with her. I will not make any changes to her medications. Also informed her that she should talk with her primary doctor about the indications for pulmonary function tests although I do feel that her symptoms are less likely asthma/ COPD. The patient did expressed understanding of this as well. I also discussed potentially this being a allergic reaction however does not seem to be specifically associated to any particular circumstance. I feel that we can hold on further workup for now. Provided reassurance to the patient. She was given return precautions. She expressed understanding and agreement. Discharge Plan Departure Patient Disposition: Home Clinical Impression: Shortness of breath Instructions: DI for Shortness of Breath Activity Restrictions/Additional Instructions: the CT scan today is very reassuring. Has shows no signs of blood clots or lymph nodes. I recommend that you follow the instructions given to you by your primary doctor during Your last visit. Also recommend that you contact her office for follow-up. return to the emergency department for any new or worsening symptoms Prescriptions: No Action (DME) ParaGuard IUD Qty: 1 RF: 0 hydroxyzine HCl 25 mg tablet 25 mg PO BEDTIME PRN (Reason: insomnia) Qty: 30 RF: 0 ibuprofen 600 MG tablet 600 mg PO Q6HP PRNQty: 30 RF: 0 hydrocortisone [Procto-Med HC] 2.5 % cream with perineal applicator See Rx Instructions .ROUTE .COMPLEX Qty: 28 RF: 3 sumatriptan succinate 25 mg tablet 25 mg PO ONCE MDD 150 mg Qty: 7 RF: 0 PNV cmb#95-ferrous fumarate-FA [] 28 mg iron- 800 mcg Tablet RF: 0 Referrals: Faith Abdul DO [Primary Care Provider] -
[2021-05-04 16:52] VITALS: BP 95/57; PULSE 64; RESP 18; O2SAT 98
== END 2021-05-04 16:53 | disposition home or self-care (01) ==
PROVIDERS: Emergency Medicine; Emergency Provider Emergency Medicine; PCP Family Medicine
DX: R06.02 Shortness of breath (principal); R07.9 Chest pain, unspecified; R00.0 Tachycardia, unspecified; F41.9 Anxiety disorder, unspecified; Z20.822 Contact with and (suspected) exposure to COVID-19
CPT/HCPCS: 71046; 71275; 81003; 81025; 87635; 93005; 93010; 99283; 99284; C9803; Q9967

== ENCOUNTER → 2022-04-22 09:52 | Outpatient (CLI) | payer OTHER, SELFPAY ==
--- NOTE | 2022-04-22 | DI.MG.S_ITS ---
BILATERAL DIGITAL SCREENING MAMMOGRAM 3D/2D WITH CAD: 04/22/2022 CLINICAL: Routine screening. Breast cancer. Family history of breast cancer. Comparison is made to exams dated: 03/15/2020 mammogram and 08/18/2019 mammogram - outside location. The tissue of both breasts is extremely dense, which lowers the sensitivity of mammography. Current study was also evaluated with a Computer Aided Detection (CAD) system. There are benign post operative findings in the left breast. No significant masses, calcifications, or other findings are seen in either breast. There has been no significant interval change. IMPRESSION: BENIGN There is no mammographic evidence of malignancy. A 1 year screening mammogram is recommended. This exam was interpreted at Station ID: [id number]. NOTE: For mammograms, a report in lay terms will be sent to the patient. Approximately 15% of breast malignancies will not be visualized mammographically. In the management of a palpable breast mass, a negative mammogram must not discourage biopsy of a clinically suspicious lesion. Electronically Signed By: Rudolph charles/eugenio:04/22/2022 16:38:56 copy to: DAVIS SALEEM III letter sent: Normal Exam ACR BI-RADS Category 2: Benign Finding(s) 3342F
== END ==
PROVIDERS: PCP Family Medicine; Referring Provider Family Medicine; Visit Provider Family Medicine
DX: Z12.31 Encounter for screening mammogram for malignant neoplasm of breast (principal); Z85.3 Personal history of malignant neoplasm of breast; Z80.3 Family history of malignant neoplasm of breast
CPT/HCPCS: 77063; 77067

== ENCOUNTER 2023-01-25 14:50 | Emergency (ER) | payer OTHER, SELFPAY ==
[2023-01-25] VITALS (8 sets, daily range): BP systolic 106–129; BP diastolic 60–68; PULSE 72–88; RESP 16; TEMP 36.6; O2SAT 97–100; BMI 21.4
--- NOTE | 2023-01-25 15:25 | DI.CT.S_ITS ---
PROCEDURE: CT ABDOMEN PELVIS W CON INDICATIONS: RLQ pain TECHNIQUE: After the administration of intravenous contrast, axial sections acquired from the lung bases to the pubic symphysis. Coronal and sagittal reformats were performed. For radiation dose reduction, the following was used: automated exposure control, adjustment of mA and/or kV according to patient size. COMPARISON: None. FINDINGS: Image quality: Excellent. Lung bases: Unremarkable. Heart: No significant findings. ABDOMEN: Liver: Unremarkable. Gallbladder: Unremarkable. Biliary ducts: Unremarkable. Pancreas: Unremarkable. Spleen: Unremarkable. Adrenal Glands: Unremarkable. Kidneys and Ureters: Unremarkable. Stomach and Bowel: Stomach, small bowel loops, and colon are unremarkable. Normal appendix. Peritoneum: No abnormal intraperitoneal fluid. No free air. Ventral Wall: No hernias. Abdominal Nodes: No retroperitoneal or mesenteric adenopathy by size criteria. Vessels: Aorta and inferior vena cava are normal in size. PELVIS: Pelvic Organs: IUD is present. Bladder: Unremarkable. Pelvic Nodes: No enlarged lymph nodes. Miscellaneous: No hernias are seen. Bones: Unremarkable. IMPRESSION: No acute intra-abdominal or intrapelvic findings to explain patient's symptoms. Dictated by: Paul Ospina M.D. on 01/25/2023 at 14:51 Approved by: Paul Ospina M.D. on 01/25/2023 at 14:58
--- NOTE | 2023-01-25 15:26 | ED_ITS ---
HPI - Abdominal Pain General Chief Complaint: Abdominal Pain Stated Complaint: pain near rt hip, abd pain rt side, for about 2 da Time Seen by Provider: 01/25/23 15:16 Source: patient Mode of arrival: Ambulatory History of Present Illness HPI narrative: Remote history of breast cancer patient comes in with a story of abdominal pain for 3 or 4 days. It has been gradually getting worse over the past few days to the point today where his quite severe and she noticed that even any degree of movement would seem to make it quite a bit worse. She is never had any abdominal surgery. She has had ovarian cysts in the past. No dysuria urgency or frequency. No fever. Related Data Home Medications Medication Instructions Recorded Confirmed vit no.[id number] 12/15/18 06/05/20 fumarate 28 mg-folic acid 800 mcg tablet () leuprolide 3.75 mg intramuscular 3.75 mg IM QMONTH 02/28/22 syringe kit (Lupron Depot) Previous Rx's Medication Instructions Recorded ibuprofen 600 mg tablet 600 mg PO Q6HP PRN #30 tabs 12/17/17 ParaGuard IUD #1 ea 03/22/19 triamcinolone acetonide 0.1 % 1 applic topical BID #15 grams 07/18/22 topical ointment Allergies Allergy/AdvReac Type Severity Reaction Status Date / Time No Known Drug Allergies Allergy Verified 05/04/21 14:46 Patient History Medical History (Updated 01/25/23 @ 17:40 by Eris Linder MD) Breast cancer, left Surgical History History of lumpectomy of left breast (~2018) History of tonsillectomy (2002) Family History Grandfather Aneurysm Grandmother Stroke Mother Cancer Grandmother Cancer Social History marital status: number of children: 2 household members: spouse and children lives independently: Yes pets and animals: Yes education level: college occupational status: other Smoking Status: Never smoker alcohol intake: current substance use type: does not use Smoking Status: Never smoker alcohol intake frequency: holidays/special occasions only Substance Use Type: does not use Exam Narrative Exam Narrative: GENERAL: Alert, cooperative and in no distress. HEAD: Atraumatic. Normocephalic. EYES: Sclera are clear without icterus. Extraocular movements are full. ENT: No rhinorrhea. Oropharynx is moist. Mouth exam is benign. NECK: Supple. Full range of motion. CARDIOVASCULAR: Normal rate and rhythm without murmur gallop or rub. RESPIRATORY: Clear to auscultation. Breath sounds equal bilaterally. No wheezes, rales, or rhonchi. GASTROINTESTINAL: McBurney's point tenderness. Positive psoas sign. Positive heel strike. Guarding and rebound. EXTREMITIES: No edema, full range of motion. No obvious trauma. BACK: Normal inspection, no CVA tenderness. NEURO: Nonfocal examination, normal speech, normal gait. SKIN: No rash or erythema of visible areas PSYCH: Normally oriented. Normal range of affect. Appropriate behavior Initial Vital Signs Initial Vital Signs: Vital Signs Temperature 97.9 F 01/25/23 15:00 Pulse Rate 88 01/25/23 15:00 Respiratory Rate 16 01/25/23 15:00 Blood Pressure 129/63 01/25/23 15:00 Pulse Oximetry 100 01/25/23 15:00 Oxygen Delivery Method Room Air 01/25/23 15:00 Course Course Course Narrative: I suspect acute appendicitis. We will order CT, CBC, CMP, UA, lipase. Will order parenteral medications for pain. I will consult with surgery depending on the CT results. I anticipate hospitalization. Surprisingly, CBC, CMP, CT and ultrasound are all within normal limits. No acute processes identified. See discharge instructions Orders Ordered: ED Orders 01/25/23 15:23 Complete Blood Count AUTO DIFF Stat Comprehensive Metabolic Panel Stat Lipase Stat 01/25/23 15:25 CT abdomen pelvis w con Stat 01/25/23 16:11 US pelvic complete Stat 01/25/23 17:36 UA dip and micro [Urinalysis and Microscopic] Stat Sodium Chloride (Normal Saline 0.9%) 1,000 mls @ 150 mls/hr IV CONT NIKI Last Admin: 01/25/23 16:08 Dose: 150 mls/hr Documented By: SB Discontinued Medications Ketorolac Tromethamine (Ketorolac 30 Mg/Ml Vial) 15 mg IV NOW ONE Stop: 01/25/23 15:26 Last Admin: 01/25/23 16:07 Dose: 15 mg Documented By: SB Vital Signs Vital signs: Vital Signs - 8 hr 01/25/23 15:00 01/25/23 15:20 01/25/23 15:20 Temperature 97.9 F Pulse Rate 88 82 Respiratory Rate 16 Blood Pressure 129/63 118/68 Pulse Oximetry 100 97 Oxygen Delivery Method Room Air 01/25/23 15:30 01/25/23 16:00 01/25/23 16:30 Temperature Pulse Rate 74 85 77 Respiratory Rate Blood Pressure Pulse Oximetry 98 100 99 Oxygen Delivery Method 01/25/23 17:00 Temperature Pulse Rate 72 Respiratory Rate Blood Pressure Pulse Oximetry 100 Oxygen Delivery Method MDM - Abdominal Pain Lab Data 01/25/23 15:23 01/25/23 15:23 Labs: Lab Results 01/25/23 01/25/23 Range/Units 15:23 15:23 WBC 6.2 (4.5-11.0) X10^3/uL RBC 4.50 (4.0-5.2) X10^6/uL Hgb 13.4 (12.0-16.0) g/dL Hct 38.9 (36-46) % MCV 86.5 (80-100) fL MCH 29.7 (26-34) PG MCHC 34.4 (30-36) % RDW 13.3 (11.6-14.8) % Plt Count 266 (150-400) X10^3/uL Neut % (Auto) 55.3 (50-75) % Lymph % (Auto) 34.4 (25-40) % [place] % (Auto) 8.2 (3-14) % Eos % (Auto) 1.5 L (2-4) % Baso % (Auto) 0.6 (0-2) % Neut # (Auto) 3400 (6750-3953) /uL Lymph # (Auto) 2100 (3399-9548) /uL [place] # (Auto) 500 (0-900) /uL Eos # (Auto) 100 (0-450) /uL Baso # (Auto) 0 (0-100) /uL Sodium 139 (137-145) mmol/L Potassium 3.9 (3.4-5.1) mmol/L Chloride 103 (98-107) mmol/L Carbon Dioxide 30 (22-32) mmol/L BUN 13 (7-17) mg/dL Creatinine 0.52 (0.52-1.04) mg/dL Estimated GFR > 60 (>60) mL/min BUN/Creatinine Ratio 25.0 H (6-22) Glucose 118 H (70-100) mg/dL Calcium 9.5 (8.4-10.2) mg/dL Total Bilirubin 0.3 (0.2-1.3) mg/dL AST 27 (14-36) IU/L ALT 23 (<35) IU/L Alkaline Phosphatase 77 (38-126) U/L Total Protein 7.7 (6.3-8.2) g/dL Albumin 4.8 (3.5-5.0) g/dL Globulin 2.9 (1.7-4.1) g/dL Albumin/Globulin Ratio 1.7 (1.0-2.8) Lipase 103 (23-300) U/L Discharge Plan Departure Patient Disposition: Home Clinical Impression: Abdominal pain Instructions: DI for Abdominal Pain-Adult Activity Restrictions/Additional Instructions: No dangerous cause for her abdominal pain is identified today after detailed evaluation including laboratory testing CT imaging, ultrasound imaging. I recommend close outpatient follow-up the symptoms do not resolve in the next few days. In the meantime take ibuprofen 600 mg combined with Tylenol 1000 mg every 6 hours. Return to the ER right away for high fever, worsening pain or repeated vomiting. Prescriptions: No Action (DME) ParaGuard IUD Qty: 1 0RF Dose Instruction: As directed Rx Instructions: Due out 03/2029 triamcinolone acetonide 0.1 % ointment 1 applic topical BID Qty: 15 0RF Rx Instructions: do not use beyond 2 weeks ibuprofen 600 MG tablet 600 mg PO Q6HP PRNQty: 30 0RF Lupron Depot 3.75 mg syringe kit 3.75 mg IM QMONTH PNV cmb#95-ferrous fumarate-FA [] 28 mg iron- 800 mcg Tablet Referrals: Faith Abdul DO [Primary Care Provider] - Stand Alone Forms: Patient Portal/API
[2023-01-25 15:37] LABS: Add Manual Diff / Slide Review NO; Basophils Absolute Auto 0 /uL (0-100); Basophils Percent Auto 0.6 % (0-2); Eosinophils Absolute Auto 100 /uL (0-450); Eosinophils Percent Auto 1.5 % (2-4); Hematocrit 38.9 % (36-46); Hemoglobin 13.4 g/dL (12.0-16.0); Lymphocytes Absolute Auto 2100 /uL (1100-4500); Lymphocytes Percent Auto 34.4 % (25-40); Mean Corpuscular HGB Conc 34.4 % (30-36); Mean Corpuscular Hemoglobin 29.7 PG (26-34); Mean Corpuscular Volume 86.5 fL (80-100); Monocytes Absolute Auto 500 /uL (0-900); Monocytes Percent Auto 8.2 % (3-14); Neutrophils Absolute Auto 3400 /uL (1500-7000); Neutrophils Percent Auto 55.3 % (50-75); Platelet Count 266 X10^3/uL (150-400); Red Cell Distribution Width 13.3 % (11.6-14.8); White Blood Cell Count 6.2 X10^3/uL (4.5-11.0)
[2023-01-25 15:42] LABS: Alanine Aminotransferase 23 IU/L (<35); Albumin 4.8 g/dL (3.5-5.0); Albumin Globulin Ratio 1.7 (1.0-2.8); Alkaline Phosphatase 77 U/L (38-126); Aspartate Aminotransferase 27 IU/L (14-36); Bilirubin Total 0.3 mg/dL (0.2-1.3); Blood Urea Nitrogen 13 mg/dL (7-17); Calcium 9.5 mg/dL (8.4-10.2); Carbon Dioxide 30 mmol/L (22-32); Chloride 103 mmol/L (98-107); Estimated Glomerular Filt Rate > 60 mL/min (>60); Globulin 2.9 g/dL (1.7-4.1); Glucose 118 mg/dL (70-100); HEMOLYSIS 15 (0-50); Lipase 103 U/L (23-300); Potassium 3.9 mmol/L (3.4-5.1); Sodium 139 mmol/L (137-145); Total Protein 7.7 g/dL (6.3-8.2)
[2023-01-25] MEDS: KETOROLAC 30 MG/ML VIAL 15 MG IV (16:07)
[2023-01-25] MEDS: SODIUM CHLORIDE 0.9% 1,000 ML 150 ML IV (16:08)
--- NOTE | 2023-01-25 16:11 | DI.US.S_ITS ---
PROCEDURE: US PELVIC COMPLETE INDICATIONS: RIGHT PELVIC PAIN; POSSIBLE CYST TECHNIQUE: Real-time scanning was performed of the pelvic organs, with image documentation. Additional endovaginal scanning was necessary due to incomplete visualization of the adnexal and endometrial structures by transabdominal scanning. COMPARISON: CT from same date.. FINDINGS: Uterus: Uterus is anteverted and normal in size at 5.5 x 3.1 x 4.5 cm cm. The myometrium is homogeneous. The endometrium measures 3.3 mm combined thickness. IUD is appropriately positioned. Ovaries: The right ovary measures 1.8 x 3 x 1.4 cm, with a calculated ovarian volume of 4 cc. The left ovary measures 2.3 x 1.7 x 2.4 cm, with a calculated ovarian volume of 4.9 cc. The ovaries have a normal sonographic appearance. Less than 12 follicles can be seen in each ovary. No adnexal masses are seen. Other: No pathologic free abdominal or pelvic fluid. IMPRESSION: Appropriate positioning of the IUD without pelvic abnormality. Dictated by: Paul Ospina M.D. on 01/25/2023 at 16:28 Approved by: Paul Ospina M.D. on 01/25/2023 at 16:32
[2023-01-25 17:45] LABS: Appearance Urine UA CLEAR; Bilirubin Urine UA NEGATIVE (NEGATIVE); Color Urine UA YELLOW; Glucose Urine UA NEGATIVE (Negative); Ketones Urine UA NEGATIVE (NEGATIVE); Leukocyte Esterase Urine UA NEGATIVE (NEGATIVE); Nitrite Urine UA NEGATIVE (Negative); Occult Blood Urine UA NEGATIVE (Negative); Protein Urine UA NEGATIVE (Negative); Specific Gravity Urine UA <=1.005 (1.000-1.035); Urobilinogen Urine UA 0.2 E.U./dL (0.2)
[2023-01-25 17:53] LABS: RBC Urine 0-1/HPF (0-5/HPF); Squamous Epithelial Cell Urine None Seen (0-5/HPF); WBC Urine None Seen (0-5/HPF)
[2023-01-25 17:54] LABS: Bacteria Urine None Seen; Culture Indicated Urine Cult Not Indicated
== END 2023-01-25 17:51 | disposition home or self-care (01) ==
PROVIDERS: Emergency Provider Family Medicine Addiction Medicine; PCP Family Medicine
DX: R10.9 Unspecified abdominal pain (principal)
CPT/HCPCS: 36415; 74177; 76830; 76856; 80053; 81001; 83690; 85025; 93975; 96361; 96374; 99284; J1885; Q9967

== ENCOUNTER → 2024-03-16 17:48 | Outpatient (CLI) | payer OTHER, SELFPAY ==
[2024-03-16 18:42] LABS: Influenza A - CEPHEID Flu A NEGATIVE (NEGATIVE); Influenza B - CEPHEID Flu B NEGATIVE (NEGATIVE); Respiratory Syncytial Virus Negative (Negative)
[2024-03-16 18:52] LABS: COVID-19 CEPHEID 4-PLEX PCR Negative (Negative)
== END ==
PROVIDERS: PCP Student in an Organized Health Care Education/Training Program; Visit Provider Nurse Practitioner Family
DX: R05.1 Acute cough (principal); R50.9 Fever, unspecified; J02.9 Acute pharyngitis, unspecified
CPT/HCPCS: 0241U; 87070

== ENCOUNTER → 2024-08-17 07:48 | Outpatient (CLI) | payer OTHER, SELFPAY ==
[2024-08-17 08:46] LABS: Add Manual Diff / Slide Review NO; Basophils Absolute Auto 0 /uL (0-100); Basophils Percent Auto 0.5 % (0-2); Eosinophils Absolute Auto 100 /uL (0-450); Eosinophils Percent Auto 1.5 % (2-4); Hematocrit 37.3 % (36-46); Hemoglobin 12.8 g/dL (12.0-16.0); Lymphocytes Absolute Auto 1700 /uL (1100-4500); Mean Corpuscular HGB Conc 34.2 % (30-36); Mean Corpuscular Hemoglobin 29.7 PG (26-34); Mean Corpuscular Volume 86.7 fL (80-100); Monocytes Absolute Auto 400 /uL (0-900); Monocytes Percent Auto 9.9 % (3-14); Neutrophils Absolute Auto 2200 /uL (1500-7000); Neutrophils Percent Auto 49.1 % (50-75); Platelet Count 298 X10^3/uL (150-400); Red Cell Distribution Width 13.6 % (11.6-14.8); White Blood Cell Count 4.5 X10^3/uL (4.5-11.0)
[2024-08-17 09:03] LABS: Alanine Aminotransferase 14 IU/L (<35); Albumin 4.3 g/dL (3.5-5.0); Albumin Globulin Ratio 1.5 (1.0-2.8); Alkaline Phosphatase 81 U/L (38-126); Aspartate Aminotransferase 22 IU/L (14-36); BUN Creatinine Ratio 27.3 (6-22); Bilirubin Total 0.6 mg/dL (0.2-1.3); Blood Urea Nitrogen 18 mg/dL (7-17); Calcium 10.3 mg/dL (8.4-10.2); Carbon Dioxide 29 mmol/L (22-32); Chloride 103 mmol/L (98-107); Cholesterol 177 mg/dL (140-199); Estimated Glomerular Filt Rate > 60 mL/min (>60); Globulin 2.8 g/dL (1.7-4.1); Glucose 93 mg/dL (70-100); HDL Cholesterol 72 mg/dL (40-60); HEMOLYSIS < 15 (0-50); LDL Cholesterol Calculated 94 mg/dL (<100); Potassium 4.1 mmol/L (3.4-5.1); Sodium 137 mmol/L (137-145); Total Protein 7.1 g/dL (6.3-8.2); Triglycerides 54 mg/dL (35-150)
[2024-08-17 09:25] LABS: TSH w/ Reflex to FT4 1.49 uIU/mL (0.47-4.68)
== END ==
PROVIDERS: PCP Student in an Organized Health Care Education/Training Program; Referring Provider Student in an Organized Health Care Education/Training Program; Visit Provider Student in an Organized Health Care Education/Training Program
DX: Z00.00 Encounter for general adult medical examination without abnormal findings (principal); Z85.3 Personal history of malignant neoplasm of breast; Z13.6 Encounter for screening for cardiovascular disorders
CPT/HCPCS: 36415; 80053; 80061; 84443; 85025

== ENCOUNTER → 2024-09-28 16:38 | Outpatient (CLI) | payer OTHER, SELFPAY ==
--- NOTE | 2024-09-28 16:39 | DI.MG.S_ITS ---
BILATERAL DIGITAL SCREENING MAMMOGRAM 3D/2D WITH CAD POST LUMPECTOMY: 09/28/2024 CLINICAL: Routine screening. Personal history of left breast cancer.Family history of breast cancer. Comparison is made to exams dated: 04/22/2022 mammogram - [facility], 03/15/2020 mammogram, 08/18/2019 mammogram - outside location, 12/06/2018 mammogram, and 11/19/2018 mammogram - [facility]. The breasts are extremely dense, which lowers the sensitivity of mammography (category d />75% glandular tissue). Current study was also evaluated with a Computer Aided Detection (CAD) system. There are benign post operative findings and biopsy clip in the left breast. No significant masses, calcifications, or other findings are seen in either breast. There has been no significant interval change. IMPRESSION: BENIGN There is no mammographic evidence of malignancy. A 1 year screening mammogram is recommended. This exam was interpreted at Station ID: [id number]. NOTE: For mammograms, a report in lay terms will be sent to the patient. Approximately 15% of breast malignancies will not be visualized mammographically. In the management of a palpable breast mass, a negative mammogram must not discourage biopsy of a clinically suspicious lesion. Electronically Signed By: Vy Finch M.D., Ph.D. melissa/eugenio:09/29/2024 17:59:18 copy to: DAVIS SALEEM III letter sent: Normal Exam ACR BI-RADS Category 2: Benign
== END ==
LOC: MAMMO 16:39
PROVIDERS: PCP Student in an Organized Health Care Education/Training Program; Referring Provider Student in an Organized Health Care Education/Training Program; Visit Provider Student in an Organized Health Care Education/Training Program
DX: Z12.31 Encounter for screening mammogram for malignant neoplasm of breast (principal); Z85.3 Personal history of malignant neoplasm of breast; Z80.3 Family history of malignant neoplasm of breast; R92.343 Mammographic extreme density, bilateral breasts
CPT/HCPCS: 77063; 77067

== ENCOUNTER → 2025-03-28 07:42 | Outpatient (CLI) | payer OTHER, SELFPAY ==
--- NOTE | 2025-03-28 07:44 | DI.MRI.S_ITS ---
MR breast BI wo/w con: 03/28/2025. BI-RADS: 4 CLINICAL: 40-year old female for bilateral diagnostic breast MRI. Patient reports a history of left breast carcinoma. Current reported family history of breast cancer: maternal grandmother and mother. The patient reports testing negative for BRCA gene mutation. PRIOR EXAMS: 09/28/2024, 04/22/2022, 01/06/2019, 12/06/2018, 11/19/2018. MRI TECHNIQUE: Bilateral breast MRI was performed on a 1.5 Carla magnet using a dedicated breast coil with mild compression. Axial T1 and T2 STIR sequences were obtained. Dynamic contrast enhanced VIBRANT fat-suppressed sequences were obtained. Delayed sagittal high resolution or sagittal reconstructed isotropic sequence was also obtained. Subtraction images and maximum intensity projection images were obtained. The study was evaluated using MiniBrake software. IV Contrast: 20 ml ProHance. FIBROGLANDULAR TISSUE Bilateral: D. Extreme fibroglandular tissue. BACKGROUND PARENCHYMAL ENHANCEMENT Bilateral: Mild symmetrical background parenchymal enhancement. BREAST FINDINGS Right: Lower, 5.9 cm from nipple, (Sagittal S:12/I:69), (Axial S:8/I:50), Middle depth, measuring 4.9 x 0.7 x 1.6cm: There is non-mass enhancement in linear distribution. No mammographic correlate seen. Right: No other suspicious mass, non-mass enhancement, or architectural distortion. No axillary or internal mammary chain adenopathy. Left: Lower at 6:00, (Sagittal S:13/I:69), (Axial S:8/I:42), Posterior depth, measuring 0.7 x 0.5 x 0.6cm: Retrospective review of prior MRI dated 01/06/2019 showed an oval mass in the same location with similar size and shape. This likely represents a small lymph node. There is an oval, circumscribed homogeneously enhancing mass. On non-contrast sequences this mass shows high signal intensity on STIR/T2-weighted sequences. The mass is not significantly changed in size, extent, appearance, signal or enhancement characteristics. Left: No abnormal masses or suspicious enhancement involving the posterior depth of the upper outer quadrant at the site of previously treated cancer. Expected post surgical changes in the area. No axillary or internal mammary chain adenopathy. No skin or nipple abnormalities seen. No other suspicious mass, architectural distortion, or enhancement elsewhere. CHEST FINDINGS Visualized portions of the chest appear unremarkable. ABDOMEN FINDINGS Visualized portions of the upper abdomen appear unremarkable. IMPRESSION: Right (Non-Mass): Lower, 5.9 cm from nipple, (Sagittal S:12/I:69), (Axial S:8/I:50), Middle depth, measuring 4.9 x 0.7 x 1.6cm * Suspicious findings with likelihood of malignancy. Left * No evidence of malignancy with benign findings. RECOMMENDATIONS Right: Lower, 5.9 cm from nipple, Middle depth * Further evaluation with diagnostic ultrasound. * Second-look ultrasound. COMMENTS: If no sonographic finding is identified in the right breast to correlate with suspicious non-mass enhancement, a MRI guided biopsy is recommended as this is a new finding not seen on comparison MRI or recent mammograms. OVERALL ASSESSMENT CATEGORY BI-RADS-4: Suspicious. ELECTRONICALLY SIGNED: Rudolph Buenrostro M.D. on 03/28/2025 at 06:02:45 PM PT Interpreting Station ID: [id number]
== END ==
PROVIDERS: PCP Student in an Organized Health Care Education/Training Program; Referring Provider Student in an Organized Health Care Education/Training Program; Visit Provider Student in an Organized Health Care Education/Training Program
DX: R92.2 Inconclusive mammogram (principal); Z85.3 Personal history of malignant neoplasm of breast; Z80.3 Family history of malignant neoplasm of breast
CPT/HCPCS: 77049; A9579

== ENCOUNTER → 2025-05-03 10:29 | Outpatient (CLI) | payer OTHER, SELFPAY ==
--- NOTE | 2025-05-03 10:30 | DI.US.S_ITS ---
US breast RT limited: 05/03/2025. BI-RADS: 4 CLINICAL: 40-year old female for right diagnostic breast ultrasound that is a follow-up to diagnostic breast MRI on 03/28/2025. No Tyrer-Cuzick risk score calculation due to the patient's personal history of breast cancer. Patient reports a history of left breast carcinoma diagnosed at age 34. Current reported family history of breast cancer: maternal grandmother and mother. The patient reports testing negative for BRCA gene mutation. The patient had a prior left breast biopsy. PRIOR EXAMS Breast MRI(s): 03/28/2025. Seven Other Exams on 09/28/2024, 04/22/2022, 01/06/2019, 12/06/2018, 11/19/2018. ULTRASOUND TECHNIQUE TARGETED Right Breast Ultrasound: Real-time ultrasound exam was performed focused to area of clinical and/or imaging concern. ULTRASOUND FINDINGS Right: There is no sonographic correlate for the suspicious finding (linear non mass enhancement in the inferior right breast) seen on MRI dated 03/28/2025 that was not seen on the previous MRI of 01/06/2019. IMPRESSION: Right * Suspicious findings with likelihood of malignancy. RECOMMENDATIONS Right * MRI-guided biopsy for further evaluation. COMMENTS: The above findings and recommendations were discussed with the patient by the on-site radiologist at the time of the exam. OVERALL ASSESSMENT CATEGORY BI-RADS-4: Suspicious. ELECTRONICALLY SIGNED: Rudolph Buenrostro M.D. on 05/03/2025 at 12:31:35 PM PT Interpreting Station ID: [id number]
== END ==
LOC: US 10:30
PROVIDERS: PCP Student in an Organized Health Care Education/Training Program; Referring Provider Student in an Organized Health Care Education/Training Program; Visit Provider Student in an Organized Health Care Education/Training Program
DX: R92.8 Other abnormal and inconclusive findings on diagnostic imaging of breast (principal); Z85.3 Personal history of malignant neoplasm of breast; Z80.3 Family history of malignant neoplasm of breast
CPT/HCPCS: 76642

== ENCOUNTER → 2025-08-28 08:39 | Outpatient (CLI) | payer OTHER, SELFPAY ==
--- NOTE | 2025-08-28 08:40 | DI.US.S_ITS ---
US breast RT limited, MM diagnostic mammo BI: 08/28/2025 BI-RADS: 4 CLINICAL: 40-year old female for bilateral diagnostic mammogram and right diagnostic breast ultrasound. No Tyrer-Cuzick risk score calculation due to the patient's personal history of breast cancer. Patient reports a history of left breast carcinoma diagnosed at age 34. Status-post left lumpectomy with radiation therapy and hormonal therapy. Current reported family history of breast cancer: maternal grandmother and mother. The patient reports testing negative for BRCA gene mutation. The patient reports a palpable abnormality (6 months) in the right breast that has been present since before the patient's MRI guided biopsy on 06/20/2025. The patient had prior bilateral breast biopsies. PRIOR EXAMS 06/20/2025, 05/03/2025, 03/28/2025, 09/28/2024, 04/22/2022, 01/06/2019, 12/06/2018, 11/19/2018. MAMMOGRAPHY TECHNIQUE: 2D and 3D (tomosynthesis) digital mammographic views obtained, with additional images as needed for full coverage. Current study was also evaluated with a Computer Aided Detection (CAD) system. ULTRASOUND TECHNIQUE TARGETED Right Breast Ultrasound: Real-time ultrasound exam was performed focused to area of clinical and/or imaging concern. Real-time lanier scale and color doppler imaging of the area of clinical interest was performed with image documentation. DENSITY D. The breasts are extremely dense, which lowers the sensitivity of mammography. MAMMOGRAPHY FINDINGS Right (finding-1): Outer Central, Middle depth: A skin marker was placed in the area of concern, and no mammographic abnormalities are identified or to account for concern by the patient of a palpable lump. No suspicious mass, asymmetry, microcalcification, or other abnormality seen. A biopsy microclip from the patient's prior MRI guided biopsy is located 1 cm superior to the reported palpable abnormality on the spot compression views. The patient reports that this palpable abnormality has been present prior to the MRI guided biopsy, and feels like it is located at a separate site from the MRI guided biopsy. Left: Biopsy marker present on the left. Benign-appearing post-surgical changes noted on the left. There are no suspicious masses, calcifications, or other findings in the breast. ULTRASOUND FINDINGS Right (finding-1): Outer at 9:00, 4 cm from nipple, measuring 0.8 x 0.5 x 0.6 cm: Correlating with palpable lump there is an area of non-specific acoustic shadowing. Doppler shows no vascularity. IMPRESSION: Right (Arch Distortion): Outer at 9:00, 4 cm from nipple, measuring 0.8 x 0.5 x 0.6 cm * Suspicious findings with likelihood of malignancy. Left * No evidence of malignancy with benign findings. RECOMMENDATIONS Right: Outer at 9:00, 4 cm from nipple * Ultrasound-guided biopsy for further evaluation (The patient reports that this palpable abnormality has been present since before the MRI guided biopsy. The ribbon-shaped biopsy marker associated with the MRI guided biopsy is also located superior to the palpable abnormality. Given the patient's persistent lump and offset location of the biopsy marker, an ultrasound guided biopsy is now recommended to fully evaluate the patient's symptoms). COMMENTS: Findings and recommendations were conveyed to the patient during today's evaluation by Dr. Chavez. Alternatively, the patient may consider surgical consultation for excision of the palpable abnormality in lieu of image guided biopsy, if preferred. OVERALL ASSESSMENT CATEGORY BI-RADS-4: Suspicious. ELECTRONICALLY SIGNED: Traci Chavez M.D. on 08/28/2025 at 11:40:56 AM PT Interpreting Station ID: [id number]
== END ==
LOC: MAMMO 08:39
PROVIDERS: PCP Student in an Organized Health Care Education/Training Program; Referring Provider Student in an Organized Health Care Education/Training Program; Visit Provider Student in an Organized Health Care Education/Training Program
DX: N63.11 Unspecified lump in the right breast, upper outer quadrant (principal); R92.30 Dense breasts, unspecified; Z85.3 Personal history of malignant neoplasm of breast; Z80.3 Family history of malignant neoplasm of breast
CPT/HCPCS: 76642; 77066; G0279